=== PATIENT | male | born 1990 | race Native Hawaiian/Other Pacific Islander ===

== ENCOUNTER 2025-01-12 14:12 | Day surgery (SDC) | payer BC, SELFPAY ==
[2025-01-12] VITALS (14 sets, daily range): BP systolic 87–142; BP diastolic 60–89; PULSE 88–107; RESP 13–23; TEMP 36.3–36.7; O2SAT 92–99; BMI 35.2
--- NOTE | 2025-01-12 14:14 | ED_ITS ---
HPI - Abdominal Pain 2 General: Chief Complaint: Abdominal Pain Stated Complaint: abd pain Time Seen by Provider: 01/12/25 14:13 History of Present Illness: 34-year-old male presents emergency room with abdominal pain started initially it was periumbilical and is progressed no migration of the right lower quadrant is not progressive worsening with nausea and vomiting. Denies dysuria urgency or frequency no hematochezia melena times carcinosis Associated Symptoms: Denies chills, dysuria and fever(s) Related Data Previous Rx's ?Medication ?Instructions ?Recorded amoxicillin 875 mg-potassium 1 tab PO BID 5 days #10 t abs 01/12/25 clavulanate 125 mg tablet meloxicam 7.5 mg tablet 7.5 mg PO DAILY 7 days #7 ta bs 01/12/25 oxycodone 5 mg tablet 5 mg PO Q8H PRN pain 5 days #14 01/12/25 tabs polyethylene glycol 3350 17 gram 17 g PO DAILY 7 days #7 ea 01/12/25 oral powder packet (Miralax) Allergies Allergy/AdvReac Type Severity Reaction Status Date / Time No Known Allergies Allergy Verified 01/12/25 14:21 Review of Systems 2 Const: Denies: fever(s) or chills Card: Denies: chest pain Resp: Denies: dyspnea GI: Reports: abdominal pain : Denies: dysuria, urinary frequency or urinary urgency Musc: Denies: neck pain or back pain Skin/Breast: Denies: rash Physical Exam 2 Const: GENERAL APPEARANCE: cooperative ORIENTATION/CONSCIOUSNESS: Yes awake, Yes oriented to person, Yes oriented to place and Yes oriented to time HENMT: COMMON NORMALS: normocephalic, atraumatic and hearing grossly normal bilaterally HEAD & SCALP: normocephalic and atraumatic Resp: COMMON NORMALS: normal respiratory effort, No retractions, No use of accessory muscles and clear to auscultation bilaterally AUSCULTATION: clear to auscultation bilaterally Cardio: COMMON NORMALS: regular rate, regular rhythm and No murmurs present (Cardio) RATE: regular rate RHYTHM: regular rhythm GI: COMMON NORMALS: No hepatosplenomegaly present AUSCULTATION: Yes normoactive bowel sounds PALPATION: Yes Tenderness to palpation present (GI), Yes Guarding due to palpation present (GI) in the RLQ (At McBurney's point) and Yes No hepatosplenomegaly present Extremity: COMMON NORMALS: normal to inspection, capillary refill normal, no clubbing, cyanosis or edema, no calf tenderness and no pedal edema Neuro: SENSORIUM/ORIENTATION: Yes oriented to person, Yes oriented to place and Yes oriented to time Skin: COMMON NORMALS: no rashes or lesions noted GENERAL SKIN EXAM: no rashes or lesions noted Course 2 Vital Signs: Vital signs: Vital Signs Temperature 98.0 F 01/12/25 16:45 Pulse Rate 105 H 01/12/25 16:45 Respiratory Rate 18 01/12/25 16:45 Blood Pressure 123/74 01/12/25 16:45 Pulse Oximetry 98 01/12/25 16:45 Oxygen Delivery Me thod Room Air 01/12/25 16:45 MDM - Abdominal Pain Medical Decision Making Patient has umbilical hernia which was reducible has sharp pain with guarding and McBurney's point. CT confirms acute appendicitis discussed with Dr. Silva he will take patient to the operating room. Patient given Zosyn IV fluids and antiemetics he last ate over 15 hours ago Medical Records I reviewed the patient's medical records. Lab Data I reviewed the patient's lab results. 01/12/25 14:34 01/12/25 14:34 Labs/Radiology: Radiology Impressions Abdomen/Pelvis CT 01/12/25 14:53 IMPRESSION: 1. Acute appendicitis, as described above. No abscess, obstruction or free air. 2. Additional findings, as above. ADDENDUM: 01/12/25 1609 ADDENDUM: THIS REPORT CONTAINS FINDINGS THAT MAY BE CRITICAL TO PATIENT CARE. The findings were verbally communicated via telephone conference with AXEL VACA at 4:06 PM CDShannon on 01/12/2025. The findings were acknowledged and understood. Laboratory Results WBC 10.35 10^3/uL (3.29-11.43) 01/12/25 14:34 RBC 5.70 10^6/uL (3.85-5.65) H 01/12/25 14:34 Hgb 15.40 g/dL (11.27-16.99) 01/12/25 14:34 Hct 45.1 % (37-53) 01/12/25 14:34 MCV 79.1 fl (82-101) L 01/12/25 14:34 MCH 27.0 pg (27-33) 01/12/25 14:34 MCHC 34.1 g/dL (30-55) 01/12/25 14:34 RDW 13.4 % (12.1-15.1) 01/12/25 14:34 Plt Count 266 10^3/cmm (157-399) 01/12/25 14:34 MPV 10.1 fL (7.4-10.4) 01/12/25 14:34 Neut % (Auto) 83.6 % 01/12/25 14:34 Lymph % (Auto) 11.3 % 01/12/25 14:34 Rogers % (Auto) 4.1 % 01/12/25 14:34 Eos % (Auto) 0.5 % 01/12/25 14:34 Baso % (Auto) 0.2 % 01/12/25 14:34 Neut # (Auto) 8.66 10^3/uL (1.8-7.7) H 01/12/25 14:34 Lymph # (Auto) 1.2 10^3/uL (0.8-4.8) 01/12/25 14:34 Rogers # (Auto) 0.4 10^3/uL (0.2-0.9) 01/12/25 14:34 Eos # (Auto) 0.1 10^3/uL (0.0-0.8) 01/12/25 14:34 Baso # (Auto) 0.0 10^3/uL (0.0-0.1) 01/12/25 14:34 Nucleated RBC % (auto) 0 % 01/12/25 14:34 Nucleated RBCs # 0.0 /100WBC 01/12/25 14:34 Sodium 141 mmol/L (136-145) 01/12/25 14:34 Potassium 3.8 mmol/L (3.5-5.1) 01/12/25 14:34 Chloride 104 mmol/L (98-107) 01/12/25 14:34 Carbon Dioxide 23 mmol/L (22-29) 01/12/25 14:34 Anion Gap 17.8 (5-19) 01/12/25 14:34 BUN 10 mg/dL (6-20) 01/12/25 14:34 Creatinine 0.9 mg/dL (0.7-1.2) 01/12/25 14:34 GFR Calculation 96.0 mL/min (90-130) 01/12/25 14:34 Glucose 137 mg/dL (65-115) H 01/12/25 14:34 Calculated Osmolality 293 mOsm/kg (285-295) 01/12/25 14:34 Calcium 8.9 mg/dL (8.5-10.5) 01/12/25 14:34 Total Bilirubin 0.9 mg/dL (0.15-1.2) 01/12/25 14:34 AST 31 U/L (0-40) 01/12/25 14:34 ALT 77 U/L (0-41) H 01/12/25 14:34 Alkaline Phosphatase 77 U/L (40-130) 01/12/25 14:34 Total Protein 7.1 g/dL (6.6-8.7) 01/12/25 14:34 Albumin 4.2 g/dL (3.5-5.2) 01/12/25 14:34 Globulin 2.9 g/dL (1.3-4.6) 01/12/25 14:34 Lipase 16 U/L (13-60) 01/12/25 14:34 Urine Color Dark yellow (Yellow) A 01/12/25 14: Urine Appearance Clear (CLEAR) 01/12/25 14:25 Urine pH 5.0 (5-7) 01/12/25 14:25 Ur Specific [place] 1.026 (1.005-1.030) 01/12/25 14:25 Urine Protein Negative (Negative) 01/12/25 14:25 Urine Glucose (UA) Negative (Normal) 01/12/25 14:25 Urine Ketones Negative (Negative) 01/12/25 14:25 Urine Blood Negative (Negative) 01/12/25 14:25 Urine Nitrate Negative (Negative) 01/12/25 14:25 Urine Bilirubin Negative (Negative) 01/12/25 14:25 Urine Urobilinogen 1.0 mg/dL (Negative) 01/12/25 14:25 Ur Leukocyte Esterase Negative (Negative) 01/12/25 14:25 Urine RBC 0-2 /hpf (0-2) 01/12/25 14:25 Urine WBC 0-5 /hpf (0-5) 01/12/25 14:25 Ur Squamous Epith Cells 0-5 /hpf (0-5) 01/12/25 14:25 Amorphous Sediment Not Reportable 01/12/25 14:25 Urine Bacteria None seen /hpf (NONE) 01/12/25 14:25 Hyaline Casts 3.30 /lpf 01/12/25 14:25 All radiology interpretation(s) finalized by discharge Discharge Plan Discharge Patient Disposition: Admitted As Inpatient Clinical Impression: Acute appendicitis Condition: Stable Coding Level of Care Code ED Pharmaceutical Compounding Supervisor for Osmar Hudson
--- OUTSIDE RECORDS SUMMARY | 2025-01-12 14:19 | XMS_ITS | Clinical Summary ---
Author Organization [facility] Address [address] [place] [address] Care Team Providers Care Development System Efficiency Manager Name Role Phone Elier Sanchez MD Primary Care Provider [phone] Allergies No known active allergies Medications albuterol HFA 90 mcg inhaler Take 2 Puffs by inhalation every 6 hours as needed for Shortness of Breath or Wheezing. 8.5 Gram 11 1 Active acetaminophen 500 mg tablet Take 500 mg by mouth every 6 hours as needed. Active cetirizine 10 mg tablet Take 10 mg by mouth daily. Active Active Problems No known active problems Immunizations Immunization Administration Dates Next Due (M-M-R II/PRIORIX)(12 MO UP) MEASLES, MUMPS AND RUBELLA VIRUS VACCINE, 0.5 ML IM/SUBCUT 10/14/1994,06/02/1990 (TDVAX)(7 YRS UP) TETANUS AN D DIPHTHERIA TOXOIDS, ADSORBED (2 LF OF TETANUS TOXOID AND 2 LF OF DIPHTHERIA TOXOID), 0.5ML (PF), IM 06/12/2004 Dt Dtp Dtap Vaccine 06/16/1994,08/31/1990,1989 HIB, Unspecified Formulation 06/30/1990 Hepatitis A Vaccine 06/22/2002,11/18/2001 Hepatitis B Vaccine 11/18/2001,06/16/2001,2000 IPV/OPV 06/16/1994,08/31/1990 Family History Medical History Relation Name Comments No Known Problems Brother Heart Disease Father Diabetes Mother Relation Name Status Comments Brother Alive Father Alive Mother Alive Social History Tobacco Use Types Packs/Day Years Used Date Smoking Tobacco: Never Smokeless Tobacco: Never Alcohol Use Standard Drinks/Week Comments No 0 (1 standard drink = 0.6 oz pur e alcohol) Sex and Gender Information Value Date Recorded Sex Assigned at Not on file Legal Sex Male 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 Gender Identity Not on file Sexual Orientation Not on file Last Filed Vital Signs Vital Sign Reading Time Taken Comments Blood Pressure 116/72 12/17/2022 1:02 PM CDT Pulse 100 12/17/2022 1:02 PM CDT Temperature 37.1 C (98.7 F) 12/17/2022 1:02 PM CDT Respiratory Rate - - Oxygen Saturation 98% 12/17/2022 1:02 PM CDT Inhaled Oxygen Concentration - - Weight 113.9 kg (251 lb) 12/17/2022 1:02 PM CDT Height 182.9 cm (6') 12/17/2022 1:02 PM CDT Body Mass Index 34.04 12/17/2022 1:02 PM CDT Plan of Treatment Health Maintenance Due Date Last Done Comments DTAP/TDAP/TD VACCINES (5 - Tdap) 06/13/2004 06/12/2004, 06/16/1994, 08/31/1990, Additional history exists Preventative Visit- Commercial 07/13/2024 INFLUENZA VACCINE (#1) 2025 11/20/2020 HEPATITIS B VACCINES Completed 11/18/2001, 06/16/2001, 05/19/2001 HPV VACCINES Aged Out No longer eligi ble based on patient's age to complete this topic Insurance [address] [place] [address] [facility] [employer] Care Teams Development System Efficiency Manager Relationship Specialty Start Date End Date Elier Sanchez MD [address] [place] [id number] PCP - General 01/11/08
--- OUTSIDE RECORDS SUMMARY | 2025-01-12 14:19 | XMS_ITS | Encounter Summary ---
Author Organization [facility] Address [address] [place] [address] Care Team Providers Care Marquetry Worker Name Role Phone Elier Sanchez MD Primary Care Provider [phone] Encounter Details Date Type Department Care Team (Late st Contact Info) Description 07/14/2007 Outpatient Historical [facility] [address] [place] [phone] Elier Sanchez MD [address] [place] [address] Social History Tobacco Use Types Packs/Day Years Used Date Smoking Tobacco: Never Assessed Sex and Gender Information Value Date Recorded Sex Assigned at Not on file Legal Sex Male 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
--- OUTSIDE RECORDS SUMMARY | 2025-01-12 14:19 | XMS_ITS | Clinical Summary ---
Author Organization [facility] Address [address] [facility] [place] [address] Care Team Providers Care Childrens Club Attendant Name Role Phone Elier Sanchez MD Primary Care Provider [phone] Allergies No known active allergies Medications PHENYLEPHRINE/D M/ACETAMINOP/GG (TYLENOL COLD AND FLU SEVERE ORAL) Take by mouth. Activ e albuterol HFA 90 mcg inhaler Take 2 Puffs by inhalation every 6 hours as needed for Shortness of Breath or Wheezing. 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 Gender Identity Not on file Sexual Orientation Not on file Last Filed Vital Signs Vital Sign Reading Time Taken Comments Blood Pressure 112/70 11/20/2020 1:23 PM CDT Pulse 97 11/20/2020 1:23 PM CDT Temperature 37 C (98.6 F) 11/20/2020 1:23 PM CDT Respiratory Rate - - Oxygen Saturation 97% 11/20/2020 1:23 PM CDT Inhaled Oxygen Concentration - - Weight 112 kg (247 lb) 11/20/2020 1:23 PM CDT Height 182.9 cm (6') 11/20/2020 1:23 PM CDT Body Mass Index 33.5 11/20/2020 1:23 PM CDT Plan of Treatment Health Maintenance Due Date Last Done Comments DTAP/TDAP/TD VACCINES (5 - Tdap) 06/13/2004 06/12/2004, 06/16/1994, 08/31/1990, Additional history exists INFLUENZA VACCINE (#1) 2024 11/20/2020 Preventative Visit- Commercial 07/13/2024 HEPATITIS B VACCINES Completed 11/18/2001, 06/16/2001, 05/19/2001 HPV VACCINES Aged Out No longer eligi ble based on patient's age to complete this topic Insurance [employer] Member Subscriber Plan / Payer (Ef fective 2019-Present) Name:Devorah Gonzalez Relation to Subscriber:Self Name:Devorah Gonzalez Payer ID:Not on file Group ID:[id number] Type:[employer] Address: [facility] [address] [place] [id number] Care Teams Childrens Club Attendant Relationship Specialty Start Date End Date Elier Sanchez MD [address] [place] [address] [facility] - General 01/11/08
[2025-01-12 14:44] LABS: Hematocrit 45.1 % (37-53); Hemoglobin 15.40 g/dL (11.27-16.99); Mean Corpuscular HGB Conc 34.1 g/dL (30-55); Mean Corpuscular Hemoglobin 27.0 pg (27-33); Mean Corpuscular Volume 79.1 fl (82-101); Nucleated Red Blood Cells % 0 %; Platelet Count 266 10^3/cmm (157-399); Red Blood Count 5.70 10^6/uL (3.85-5.65); White Blood Count 10.35 10^3/uL (3.29-11.43)
[2025-01-12 14:46] LABS: Glucose Urine UA Negative (Normal); Nitrate Urine Negative (Negative); Specific Gravity, Urine 1.026 (1.005-1.030)
[2025-01-12 14:49] LABS: Add Urine Microscopic? YES
--- NOTE | 2025-01-12 14:53 | CTR_ITS ---
PROCEDURE INFORMATION: Exam: CT Abdomen And Pelvis With Contrast Exam date and time: 01/12/2025 3:21 PM Age: 34 years old Clinical indication: Abdominal pain; Localized; Lower; Additional info: Abd pain TECHNIQUE: Imaging protocol: Computed tomography of the abdomen and pelvis with contrast. Axial, coronal and sagittal reformatted images were created and reviewed. Radiation optimization: All CT scans at this facility use at least one of these dose optimization techniques: automated exposure control; mA and/or kV adjustment per patient size (includes targeted exams where dose is matched to clinical indication); or iterative reconstruction. Contrast material: OMNI 350; Contrast volume: 100 ml; Contrast route: INTRAVENOUS (IV); COMPARISON: No relevant prior studies available. RADIATION DOSE METRICS: Total DLP (mGy-cm): 1153.03 FINDINGS: Diaphragm: Elevated right hemidiaphragm. Liver: Mild hepatomegaly. Diffuse hepatic steatosis. Gallbladder and biliary ducts: No radiodense gallstones. No biliary ductal dilatation. Pancreas: Unremarkable. Spleen: Mild splenomegaly. Adrenal glands: Normal. No mass. Kidneys and ureters: No mass. No radiodense calculi. No hydronephrosis. Stomach and bowel: No bowel wall thickening. No obstruction. No pneumatosis. Appendix: Dilated, thickwalled, hyperemic appendix with subtle periappendiceal haziness and an intraluminal appendicolith. Intraperitoneal space: No free fluid. No organized fluid collection. No free air. Vasculature: Unremarkable. No aneurysm. Lymph nodes: No pathologically enlarged lymph nodes. Urinary bladder: Mild circumferential urinary bladder wall thickening, likely secondary to underdistention. Reproductive: Unremarkable. Bones/joints: No acute osseous abnormality. Soft tissues: Unremarkable. CT/CT abdomen pelvis w con* [id number] IMPRESSION: 1. Acute appendicitis, as described above. No abscess, obstruction or free air. 2. Additional findings, as above.
[2025-01-12 15:03] LABS: Alanine Aminotransferase 77 U/L (0-41); Albumin Level 4.2 g/dL (3.5-5.2); Alkaline Phosphatase 77 U/L (40-130); Anion Gap 17.8 (5-19); Aspartate Amino Transferase 31 U/L (0-40); Blood Urea Nitrogen 10 mg/dL (6-20); Calcium 8.9 mg/dL (8.5-10.5); Carbon Dioxide 23 mmol/L (22-29); Chloride 104 mmol/L (98-107); Creatinine Clr Calc Pharmacy 151.8831; Globulin 2.9 g/dL (1.3-4.6); Glucose 137 mg/dL (65-115); Lipase 16 U/L (13-60); Osmolality Calculated 293 mOsm/kg (285-295); Potassium 3.8 mmol/L (3.5-5.1); Sodium 141 mmol/L (136-145); Total Protein 7.1 g/dL (6.6-8.7)
[2025-01-12] MEDS: iohexol 350 mg/mL 500 mL Btl (per mL) IV (15:22)
[2025-01-12] MEDS: morphine 4 mg/mL SDV 1 mL IVP (16:25)
[2025-01-12] MEDS: piperacillin-tazobactam 3.375 GM in sodium chloride 0.9% (plus) 50 ML IV (16:29)
--- NOTE | 2025-01-12 16:42 | ANES.PREANE2 ---
Pre-Anesthetic Assessment Height/Weight: Height 6 ft Weight 260 lb Temp Pulse Resp BP Pulse Ox O2 Del Method 97.7 F 88 16 142/89 94 Room Air 01/12/25 14:16 01/12/25 15:39 01/12/25 16:25 01/12/25 15:39 01/12/25 15:39 01/12/25 15:39 Preop Diagnosis: Acute appendicitis Operation Date: 01/12/25 15:10 Proposed Procedures p Appendectomy(Right) - Elier Silva MD Was Beta Carlos taken within 24 hours: N/A Was Clonidine taken within 24 hours: N/A Exam alert, oriented x 3, clear to auscultation bilaterally and regular rate & rhythm Airway Submandibular: within normal limits Cervical ROM: within normal limits Mallampati: Class III Dentition: full Anesthetic Plan ASA status: 2E Anesthesia: General Other: Patient presents to the ER with acute appendicitis No prior issues with anesthesia No food since last night, Gatorade around 11AM. admits to vomiting around noon Denies any cardiac or pulmonary issues Labs reviewed from today and acceptable for procedure METs greater than 4 Plan for GETA Medications/Allergies Home Medications ?Medication ?Instructions ?Recorded ?Confirmed ?Last Taken ?Type amoxicillin 875 mg-potassium 1 tab PO BID 5 days #10 tabs 01/12/25 Unknown Rx clavulanate 125 mg tablet meloxicam 7.5 mg tablet 7.5 mg PO DAILY 7 days #7 tabs 01/12/25 Unknown Rx oxycodone 5 mg tablet 5 mg PO Q8H PRN pain 5 days #14 01/12/25 Unknown Rx tabs polyethylene glycol 3350 17 gram 17 g PO DAILY 7 days #7 ea 01/12/25 Unknown Rx oral powder packet (Miralax) Allergies Allergy/AdvReac Type Severity Reaction Status Date / Time No Known Allergies Allergy Verified 01/12/25 14:21 Current Medications Generic Name Dose Route Start Last Admin Trade Name Freq PRN Reason Stop Dose Admin Sodium Chloride 1,000 mls @ 999 mls/hr 01/12/25 16:09 01/12/25 16:27 Sodium Chloride 0.9% IV 01/12/25 17:09 999 mls/hr .Q1H1M ONE Administration Data Anesthesia 01/12/25 14:34 01/12/25 14:34 Short CBC 01/12/25 Range/Units 14:34 WBC 10.35 (3.29-11.43) 10^3/uL Hgb 15.40 (11.27-16.99) g/dL Hct 45.1 (37-53) % MCV 79.1 L (82-101) fl Plt Count 266 (157-399) 10^3/cmm Neut % (Auto) 83.6 % Neut # (Auto) 8.66 H (1.8-7.7) 10^3/uL BMP 01/12/25 14:34 Sodium 141 Potassium 3.8 Chloride 104 Carbon Dioxide 23 BUN 10 Creatinine 0.9 Glucose 137 H Calcium 8.9 Liver Function 01/12/25 Range/Units 14:34 Total Bilirubin 0.9 (0.15-1.2) mg/dL AST 31 (0-40) U/L ALT 77 H (0-41) U/L Alkaline Phosphatase 77 (40-130) U/L Albumin 4.2 (3.5-5.2) g/dL Urine 01/12/25 Range/Units 14:25 Urine Color Dark yellow A (Yellow) Urine Appearance Clear (CLEAR) Urine pH 5.0 (5-7) Ur Specific [place] 1.026 (1.005-1.030) Urine Protein Negative (Negative) Urine Glucose (UA) Negative (Normal) Urine Ketones Negative (Negative) Urine Nitrate Negative (Negative) Urine Bilirubin Negative (Negative) Ur Leukocyte Esterase Negative (Negative) Urine RBC 0-2 (0-2) /hpf Urine WBC 0-5 (0-5) /hpf
--- NOTE | 2025-01-12 16:47 | P.HP_ITS ---
Providers/Chief Complaint 2 Chief Complaint: abd pain History of Present Illness Devorah Gonzalez is a 34 year old male who presents to the hospital with abdominal pain starting this morning the pain is periumbilical and then radiated to right lower quadrant he also had several episodes of vomiting. CT scan done in the ER shows early acute appendicitis white count is normal. He also has umbilical hernia Review of Systems 2 General: Reports: 10 or more systems reviewed and unremarkable except in HPI and below Medications/Allergies Home Medications ?Medication ?Instructions ?Recorded ?Confirmed ?Last Taken ?Type amoxicillin 875 mg-potassium 1 tab PO BID 5 days #10 t abs 01/12/25 Unknown Rx clavulanate 125 mg tablet meloxicam 7.5 mg tablet 7.5 mg PO DAILY 7 days #7 ta bs 01/12/25 Unknown Rx oxycodone 5 mg tablet 5 mg PO Q8H PRN pain 5 days #14 01/12/25 Unknown Rx tabs polyethylene glycol 3350 17 gram 17 g PO DAILY 7 days #7 ea 01/12/25 Unknown Rx oral powder packet (Miralax) Allergies Allergy/AdvReac Type Severity Reaction Status Date / Time No Known Allergies Allergy Verified 01/12/25 14:21 Vitals/I&O/Wt Last Vital Signs Temp 97.7 F 01/12/25 14:16 Pulse 88 01/12/25 15:39 Resp 16 01/12/25 16:25 BP 142/89 01/12/25 15:39 Pulse Ox 94 01/12/25 15:39 O2 Del Method Room Air 01/12/25 15:39 Weight last 48 hrs Weight 260 lb Physical Exam 2 GI: OTHER: Abdomen soft, there is tenderness in the right lower quadrant, McBurney positive. There is an umbilical hernia appears to be incarcerated Data 01/12/25 14:34 01/12/25 14:34 A&P Assessment and plan (1) Acute appendicitis: (2) Umbilical hernia: Plan 34-year-old male who presents to the hospital with acute appendicitis verified by imaging. After discussion of risk and benefits we will proceed with a laparoscopic possible open appendectomy and a possible primary repair of umbilical hernia. I discussed all risk benefits with the patient: The risk of bleeding, infection, hernia formation, injury to the adjacent structures including the colon and the small bowel ureter or right vessels, risk of intra- abdominal abscess requiring drainage, need for additional procedures. I have explained to the patient that I will try to avoid going through his hernia but if I have no choice I will have to put the trocar through the hernia and I guess I will proceed with a primary repair I have explained that the recurrence risk is very high and he shows understanding agrees to proceed. PDMP PDMP Reviewed: Last Reviewed 01/12/25 17:46 EDT by Elier Silva MD Attestations 2 Medical Necessity Statement*: Possible discharge home after surgery Coding Level of Care Code Acute Code for Chg Fwd Diagnoses Acute appendicitis K35.80 Umbilical hernia K42.9
[2025-01-12] MEDS: BUPivacaine 0.25% INJ 10 mL INJECTION (18:19)
[2025-01-12] MEDS: lidocaine-epi 1% 20 mL INJ 10 ML INJECTION (18:19)
--- NOTE | 2025-01-12 18:40 | P.OP_ITS ---
Operative Report Date of procedure: January 12, 2025 Pre-op diagnosis: Acute appendicitis and umbilical hernia Post-op diagnosis: Acute appendicitis and umbilical hernia measuring 1.5 cm Post-op findings: There was acute appendicitis without perforation the appendix was elongated and dilated. There was a umbilical hernia measuring 1.5 cm containing only fat Procedure done: Laparoscopic appendectomy, laparoscopic primary umbilical hernia repair Specimens removed/disposition: Appendix, hernia sac and contents Surgeon: Elier Silva MD Well Service Derrick Worker: АЛЕКСАНДР OR Staff Estimated blood loss: 5 Complications: none apparent Brief History: 34-year-old male who presented with acute abdominal pain CT scan did not show evidence of acute appendicitis, he also had a umbilical hernia noted on CT scan and examination. After discussion risk-benefit as documented in my preop note we decided to proceed Procedure: patient was brought into the OR, he was placed in a supine position. General anesthesia was given. The abdomen was prepped and draped in the usual sterile fashion. A timeout was conducted. The abdomen was accessed via a 5 mm trocar in the left upper quadrant, initial pneumoperitoneum was obtained and no evidence of visceral injury during entry was noted. The umbilical hernia was reduced with external pressure. I then proceeded to place a 12 mm trocar in the infraumbilical location through the hernia. A 5 mm trocar was placed in the suprapubic location. The patient was placed in a steep Trendelenburg with left side down. The appendix was identified in the left right lower quadrant. The appendix was elevated and the mesoappendix was taken from the tip to the base of the appendix using LigaSure. The appendix base was healthy, I then proceeded to transect the appendix at this level using a 45 mm blue load Endo LUTHER stapler. The staple line appeared healthy and hemostatic. The appendix was retrieved in an Endo Catch bag through the umbilical trocar site. The umbilical trocar was removed. I used the LigaSure to resect the hernia sac. The hernia sac and contents were retrieved in an Endo Catch bag and sent to pathology. I then proceeded to close the hernia defect using a YazanTonya suture passer in direct visualization with a #0 PDS suture. The suprapubic trocar was removed under direct visualization, the left upper quadrant trocar was used to acquire the pneumoperitoneum and subsequently removed. All the wounds were examined and noted to be hemostatic, local anesthesia was infiltrated. The medical trocar site was closed with #3 Vicryl for subcutaneous tissue and #4 Monocryl for the skin. The other trocars were closed with #4 Monocryl for the skin and Dermabond was applied. At the end of the procedure all counts were correct the patient t olerated well the procedure and was transferred to the PACU in stable condition.
[2025-01-12] MEDS: oxyCODONE 5 mg IR Tab/Cap PO (19:46)
--- NOTE | 2025-01-12 19:55 | ANE.PACU2 ---
Inpatient post-anesthesia follow up: Airway intact: Yes Vital signs: Temperature 98.0 F Pulse Rate 107 Respiratory Rate 18 Blood Pressure 114/75 Pulse Oximetry 96 Oxygen Delivery Me thod Room Air Oxygen Flow Rate 8 Fraction of Inspir ed Oxygen Hydration adequate: Yes Nausea and vomiting: No Pain level: 2 Mental status: Baseline
== END 2025-01-12 19:55 | disposition home or self-care (01) ==
LOC: ER 16:24 → OR 16:40
PROVIDERS: Emergency Provider Family Medicine; Visit Provider Surgery
PROC: (CPT 44950; principal; 2025-01-12 15:00)
PROC: (CPT 44970; 2025-01-12 15:00)
DX: K35.33 Acute appendicitis with perforation, localized peritonitis, and gangrene, with abscess (principal); K42.9 Umbilical hernia without obstruction or gangrene
CPT/HCPCS: 44970; 36415; 74177; 80053; 81001; 83690; 85025; 88302; 88304; J0330; J0780; J1100; J1171; J2250; J2270; J2405; J2543; J2704; J3010; J3490; J7030; J9999